=== PATIENT | female | born 1985 | race Caucasian/White ===

== ENCOUNTER 2017-06-09 19:49 | Emergency (ER) | payer SELFPAY ==
[~2017-06-09] VITALS: Ht 154.9 cm; Wt 73.1 kg
[2017-06-09 20:33] VITALS: BP 110/68
--- NOTE | 2017-06-09 20:47 | NUR ---
PT TAKEN TO BED 5
--- NOTE | 2017-06-09 20:55 | NUR ---
PATIENT PRESENTS TO ED WITH C/O COUGH AND RUNNY NOSE AND CHEST HURTIN WITH COUGH X 3 DAYS . PT DENIES N/V/D; SKIN IS PINK/WARM/DRY; AAOX4 WITH EVEN AND STEADY GAIT; LUNGS CLEAR BL; HR EVEN AND REGULAR; PT DENIES ANY FEVER OR SOB AT THIS TIME; PATIENT STATES PAIN OF 6/10 AT THIS TIME; VSS; PATIENT POSITIONED FOR COMFORT; HOB ELEVATED; BEDRAILS UP X2; BED DOWN. ER MD MADE AWARE OF PT STATUS.
[2017-06-09 21:42] VITALS: BP 125/65
== END 2017-06-09 21:39 | disposition home or self-care (01) ==
LOC: MED 19:49
DX: J20.9 Acute bronchitis, unspecified (principal)
CPT/HCPCS: 71010; 81025; 93005; 99284; Q0092; 99283

== ENCOUNTER 2018-05-27 21:08 | Emergency (ER) | payer SELFPAY ==
[~2018-05-27] VITALS: Ht 157.5 cm; Wt 70.0 kg
[2018-05-27 21:30] VITALS: BP 121/54
--- NOTE | 2018-05-27 21:30 | NUR ---
PATIENT TRIAGED; VSS; SENT TO ER LOBBY.
--- NOTE | 2018-05-27 23:15 | NUR ---
PATIENT PRESENTS TO ED WITH BILAT LOWER ABD PAIN RADIATING TO BILAT LOWER BACK X2 DAYS. PT STATES NO TRAUMA. SHE STATES N/V WITHOUT DIARRHEA; NO DIFFICULY OR CHANGES IN URINATION; SKIN IS PINK/WARM/DRY; AAOX4 WITH EVEN AND STEADY GAIT; LUNGS CLEAR BL; HR EVEN AND REGULAR; PT DENIES ANY FEVER, CP, SOB, OR COUGH AT THIS TIME; PATIENT STATES PAIN OF 8/10 AT THIS TIME; VSS; PATIENT POSITIONED FOR COMFORT; HOB ELEVATED; BEDRAILS UP X2; BED DOWN. ER MD MADE AWARE OF PT STATUS. CONTINUE TO MONITOR.
--- NOTE | 2018-05-27 23:15 | NUR ---
PT AMBULATOED TO BED #7 WITH VSS.
--- NOTE | 2018-05-28 00:52 | NUR ---
Dr. Woodard evaluating patient
[2018-05-28 00:53] VITALS: BP 100/66
--- NOTE | 2018-05-28 01:16 | NUR ---
Patient discharged with v/s stable. Written and verbal after care instructions given and explained. Patient alert, oriented and verbalized understanding of instructions. Ambulatory with steady gait. All questions addressed prior to discharge. ID band removed. Patient advised to follow up with PMD. Rx of MACROBID 100MG given. Patient educated on indication of medication including possible reaction and side effects. Opportunity to ask questions provided and answered.
== END 2018-05-28 01:16 | disposition home or self-care (01) ==
LOC: MED 21:08
DX: N39.0 Urinary tract infection, site not specified (principal)
CPT/HCPCS: 81002; 81025; 99283

== ENCOUNTER 2018-05-29 14:59 | Emergency (ER) | payer MEDICAID ==
[~2018-05-29] VITALS: Ht 162.6 cm; Wt 68.9 kg
[2018-05-29 15:14] VITALS: BP 105/75
--- NOTE | 2018-05-29 15:30 | NUR ---
PT. CAME INTO THE ED DUE TO RLQ PAIN X 3 DAYS THAT RADIATES TO HER RIGHT LOWER BACK. PT. STATES " I CAME HERE ABOUT 2 DAYS AND THEY TOLD ME I HAVE A UTI AND I HAVE BEEN TAKING MY MEDICATIONS BUT IT HAS NOT GOTTEN ANY BETTER". PT. DENIES FEVER OR VOMITING. PT. DOES HAVE NAUSEA. 8/10 SHARP PAIN IN LEFT LOWER QUADRANT TO LEFT LOWER BACK PAIN. RR EVEN AND UNLABORED. ABD ROUND AND SOFT AND TENDER UPON PALPATION TO TO RLQ. PT. DENIES PAIN UPON URINATION OR FREQUENCY. AT BEDSIDE. ER MD NOTIFIED. WILL CONTINUE TO MONITOR. SAFETY PRECAUTIONS IMPLEMENTED.
--- NOTE | 2018-05-29 15:34 | NUR ---
REPORT RECEIVED FROM NOEMI MARTINES AT THIS TIME. PT RESTING ON [facility] W/ VSS AND SAFETY PRECAUTIONS IN PLACE. WILL CONTINUE TO MONITOR.
[2018-05-29] MEDS ORDERED: NACL 0.9% 1,000 ML IV SCH (15:58)
[2018-05-29] MEDS ORDERED: KETOROLAC 30 MG/ML VIAL IVP ONE (16:00)
--- NOTE | 2018-05-29 16:41 | NUR ---
PT RELAXING ON [facility] AT THIS TIME TALKING WITH FAMILY THAT IS AT THE BEDSIDE. SAFETY PRECAUTIONS IN PLACE, VSS. WILL CONTINUE TO MONITOR.
[2018-05-29 16:47] LABS: ALBUMIN 3.9 g/dL (3.4-5.0); ANION GAP 9.3 (8-16); CREATININE 0.4 mg/dL (0.6-1.3); POTASSIUM 4.3 mmol/L (3.5-5.1); TOTAL BILIRUBIN 0.5 mg/dL (0.0-1.0)
[2018-05-29 17:17] LABS: BASOPHILS % (AUTO) 0.4 % (0.0-2.0); EOSINOPHILS # (AUTO) 0.3 K/uL (0-0.4); EOSINOPHILS % (AUTO) 3.1 % (0.0-4.0); HEMATOCRIT 41.4 % (36-48); HEMOGLOBIN 13.4 g/dL (12.0-16.0); LYMPHOCYTES # (AUTO) 2.1 K/uL (2.5-16.5); LYMPHOCYTES % (AUTO) 23.8 % (20.5-51.1); MEAN CORPUSCULAR HEMOGLOBIN 31 pg (27-31); MEAN CORPUSCULAR HGB CONC 33 g/dL (33-37); MEAN CORPUSCULAR VOLUME 94.3 fL (80-94); MONOCYTES # (AUTO) 0.6 K/uL (0.8-1.0); NEUTROPHILS # (AUTO) 5.9 K/uL (1.8-7.7); NEUTROPHILS % (AUTO) 65.7 % (42.2-75.2); PLATELET COUNT (AUTO) 217 K/uL (140-450); RED BLOOD CELL COUNT(AUTO) 4.38 MIL/uL (4.20-5.40); RED CELL DISTRIBUTION WIDTH 13.9 % (11.6-13.7)
[2018-05-29 17:39] LABS: APPEARANCE,URINE HAZY (CLEAR); BILIRUBIN,URINE NEGATIVE (NEGATIVE); BLOOD, URINE TRACE-I (NEGATIVE); COLOR,URINE YELLOW (YELLOW); LEUKOCYTE ESTERASE ,URINE TRACE (NEGATIVE); NITRITE, URINE NEGATIVE (NEGATIVE); UGLUCOSE NEGATIVE (NEGATIVE)
--- NOTE | 2018-05-29 17:45 | NUR ---
PT ASLEEP ON [facility] AT THIS TIME W/ VSS. SAFETY PRECAUTIONS IN PLACE. WILL CONTINUE TO MONITOR. FAMILY REMAINS AT THE BEDSIDE.
[2018-05-29 17:51] LABS: RBC,URINE 0-5 (RARE) /HPF (0-5); WBC,URINE 0-5 (RARE) /HPF (0-5)
[2018-05-29 18:38] VITALS: BP 111/71
--- NOTE | 2018-05-29 18:38 | NUR ---
Patient discharged with v/s stable. Written and verbal after care instructions given and explained. Patient alert, oriented and verbalized understanding of instructions. Ambulatory with steady gait. All questions addressed prior to discharge. ID band removed. Patient advised to follow up with PMD. Rx of colace and motrin given. Patient educated on indication of medication including possible reaction and side effects. Opportunity to ask questions provided and answered.
== END 2018-05-29 18:38 | disposition home or self-care (01) ==
LOC: MED 14:59
DX: R10.2 Pelvic and perineal pain (principal)
CPT/HCPCS: 36415; 74176; 76856; 80053; 81001; 81025; 82150; 83690; 84703; 85025; 96374; 99285; J1885; Q0092

== ENCOUNTER 2018-08-27 17:31 | Emergency (ER) | payer MEDICAID ==
[~2018-08-27] VITALS: Ht 157.5 cm; Wt 76.7 kg
[2018-08-27 17:41] VITALS: BP 121/75
--- NOTE | 2018-08-27 19:50 | NUR ---
Reassessed. No new complaints or changes.
--- NOTE | 2018-08-27 20:10 | NUR ---
Patient ambulated to bed 1. RN evaluating patient at bedside.
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
--- NOTE | 2018-08-27 22:18 | NUR ---
PT RESTING WITH VISITOR AT BEDSIDE. NAD. VSS. WILL CONTINUE TO MONITOR.
[2018-08-27] MEDS ORDERED: predniSONE 20 MG TAB PO ONE (22:25)
[2018-08-27] MEDS ORDERED: diphenhydrAMINE 50 MG/ML VIAL IM ONE (22:25)
[2018-08-27 23:17] VITALS: BP 108/74
--- NOTE | 2018-08-27 23:18 | NUR ---
Patient discharged with v/s stable. Written and verbal after care instructions given and explained. Patient alert, oriented and verbalized understanding of instructions. Ambulatory with steady gait. All questions addressed prior to discharge. ID band removed. Patient advised to follow up with PMD. Rx of PREDNISONE, DPHENHYDRAMINE, PEPCID given. Patient educated on indication of medication including possible reaction and side effects. Opportunity to ask questions provided and answered.
== END 2018-08-27 23:18 | disposition home or self-care (01) ==
LOC: MED 17:31
DX: L50.0 Allergic urticaria (principal)
CPT/HCPCS: 96372; 99283; J1200; J7512

== ENCOUNTER 2018-10-07 01:02 | Emergency (ER) | payer MEDICAID ==
[~2018-10-07] VITALS: Ht 162.6 cm; Wt 74.8 kg
[2018-10-07 01:17] VITALS: BP 97/58
--- NOTE | 2018-10-07 01:20 | NUR ---
EKG PERFORMED BY EMT IN TRIAGE, NSR, ER MADE AWARE
--- NOTE | 2018-10-07 01:21 | NUR ---
PT TO ER BED 11.
--- NOTE | 2018-10-07 01:25 | NUR ---
PATIENT PRESENTS TO ED WITH CHEST PAIN X 3 DAYS. PT STATES THAT SHE HAS HAD SOME N/V X 2 WEEKS. PT DENIES ABDOMINAL PAIN; SKIN IS PINK/WARM/DRY; AAOX4 WITH EVEN AND STEADY GAIT; LUNGS CLEAR BL; HR EVEN AND REGULAR; PT DENIES ANY FEVER,SOB, OR COUGH AT THIS TIME; PATIENT STATES PAIN OF 9/10 AT THIS TIME; VSS; PATIENT POSITIONED FOR COMFORT; HOB ELEVATED; BEDRAILS UP X2; BED DOWN. ER MD MADE AWARE OF PT STATUS.
[2018-10-07] MEDS ORDERED: ONDANSETRON 4 MG ODT PO ONE (01:35)
[2018-10-07] MEDS ORDERED: KETOROLAC 60 MG/2 ML VIAL IM ONE (01:35)
[2018-10-07 02:05] VITALS: BP 97/58
--- NOTE | 2018-10-07 02:05 | NUR ---
Patient discharged with v/s stable. Written and verbal after care instructions given and explained. Patient alert, oriented and verbalized understanding of instructions. Ambulatory with steady gait. All questions addressed prior to discharge. ID band removed. Patient advised to follow up with PMD. Rx of MINERAL OIL, TRAMADOL, ZOFRAN WAS given. Patient educated on indication of medication including possible reaction and side effects. Opportunity to ask questions provided and answered.
== END 2018-10-07 02:05 | disposition home or self-care (01) ==
LOC: MED 01:02
DX: R07.89 Other chest pain (principal); R11.10 Vomiting, unspecified
CPT/HCPCS: 71045; 93005; 96372; 99283; J1885; Q0092; Q0162

== ENCOUNTER 2018-10-24 14:25 | Emergency (ER) | payer MEDICAID ==
[~2018-10-24] VITALS: Ht 152.4 cm; Wt 75.3 kg
[2018-10-24 14:35] VITALS: BP 104/57
[2018-10-24] MEDS ORDERED: KETOROLAC 60 MG/2 ML VIAL IM ONE (15:15)
[2018-10-24] MEDS ORDERED: MORPHINE SULFATE 4 MG/ML SYR IM ONE (15:15)
[2018-10-24 15:33] LABS: BILIRUBIN,URINE 1+ (NEGATIVE); BLOOD, URINE 1+ (NEGATIVE); COLOR,URINE YELLOW (YELLOW); LEUKOCYTE ESTERASE ,URINE TRACE (NEGATIVE); NITRITE, URINE POSITIVE (NEGATIVE); UGLUCOSE NEGATIVE (NEGATIVE)
[2018-10-24 15:36] LABS: APPEARANCE,URINE HAZY (CLEAR)
[2018-10-24] MEDS ORDERED: LEVOFLOXACIN 500 MG TAB PO ONE (15:40)
[2018-10-24 15:41] LABS: BARBITURATE, URINE NEG. ng/ml (NEG <=200); BENZODIAZEPINE, URINE NEG. ng/mL (NEG <=200); CANNABINOID, URINE NEG. ng/mL (NEG <=50); COCAINE, URINE NEG. ng/mL (NEG <=300); OPIATE, URINE NEG. ng/mL (NEG <=2000); PHENCYCLIDINE SCREEN,URINE NEG. ng/mL (NEG <=25)
[2018-10-24 15:43] LABS: RBC,URINE 3-10 (FEW) /HPF (0-5); WBC,URINE 20-60 /HPF (0-5)
[2018-10-24 15:59] VITALS: BP 101/65
== END 2018-10-24 15:58 | disposition home or self-care (01) ==
LOC: MED 14:25
DX: N39.0 Urinary tract infection, site not specified (principal); M62.830 Muscle spasm of back
CPT/HCPCS: 80305; 81001; 81025; 87086; 96372; 99283; J1885; J2270; 87186

== ENCOUNTER 2019-01-17 02:10 | Emergency (ER) | payer MEDICAID ==
[~2019-01-17] VITALS: Ht 154.9 cm; Wt 77.6 kg
[2019-01-17 02:36] VITALS: BP 115/68
--- NOTE | 2019-01-17 02:36 | NUR ---
TO BED #09 AMBULATORY
--- NOTE | 2019-01-17 02:50 | NUR ---
PATIENT CAME IN WITH C/O LOWER ABDOMINAL PAIN THAT RADIATES TO THE BACK. PAIN WAS 9/10. ABDOMEN WAS SOFT AND FLAT, BOWEL SOUNDS ACTIVE IN ALL FOUR QUADRANTS, PAIN IN RLQ, LLQ UPON PALPATION. PATIENT HAS URGENCY AND FREQUENCY OF URINATION. GOT A UA. HOB ELEVATED,WAS GIVEN A BLANKET, BED LOWERED AND 1 SIDE RAIL UP. WAITING FOR ER MD TO EVALUATE, WILL CONTINUE TO MONITOR.
[2019-01-17] MEDS ORDERED: KETOROLAC 60 MG/2 ML VIAL IM ONE (03:00)
[2019-01-17] MEDS ORDERED: cefTRIAXone 1,000 MG in LIDOCAINE MPF 1% - 5 mL VIAL 2.1 ML IM ONE (03:00)
--- NOTE | 2019-01-17 03:30 | NUR ---
PATIENT DISCHARGED BY DR BRYANT. PT WAS GIVEN RX FOR PYRIDIUM AND MACROBID, PATIENT WAS EDUCATED AND ALL QUESTIONS ANSWERED. PAIN WAS 0/10, VSS, PATIENT WAS STABLE. WAS TOLD TO FOLLOW UP WITH PRIMARY DRTheron
[2019-01-17 04:08] VITALS: BP 115/68
== END 2019-01-17 03:30 | disposition home or self-care (01) ==
LOC: MED 02:10
DX: N39.0 Urinary tract infection, site not specified (principal)
CPT/HCPCS: 81002; 81025; 96372; 99283; J0696; J1885; J2001

== ENCOUNTER 2019-02-19 00:24 | Emergency (ER) | payer MEDICAID ==
[~2019-02-19] VITALS: Ht 152.4 cm; Wt 76.4 kg
[2019-02-19 00:33] VITALS: BP 115/70
--- NOTE | 2019-02-19 00:33 | NUR ---
TO BED # 04 AMBULATORY
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
[2019-02-19] MEDS ORDERED: methylPREDNISolone SS 125 MG/2 ML VIAL IM ONE (01:50)
[2019-02-19] MEDS ORDERED: diphenhydrAMINE 50 MG/ML VIAL IM ONE (01:50)
[2019-02-19 02:24] VITALS: BP 110/69
--- NOTE | 2019-02-19 02:25 | NUR ---
Patient discharged with v/s stable. Written and verbal after care instructions given and explained. Patient alert, oriented and verbalized understanding of instructions. Ambulatory with steady gait. All questions addressed prior to discharge. ID band removed. Patient advised to follow up with PMD. Rx of BENADRYL, PREDNISONE given. Patient educated on indication of medication including possible reaction and side effects. Opportunity to ask questions provided and answered.
== END 2019-02-19 02:25 | disposition home or self-care (01) ==
LOC: MED 00:24
DX: L25.9 Unspecified contact dermatitis, unspecified cause (principal)
CPT/HCPCS: 96372; 99283; J1200; J2930

== ENCOUNTER 2019-02-20 04:48 | Emergency (ER) | payer MEDICAID ==
[~2019-02-20] VITALS: Ht 152.4 cm; Wt 76.2 kg
[2019-02-20 04:50] VITALS: BP 134/70
--- NOTE | 2019-02-20 04:58 | NUR ---
PT AMBULATED TO ER BED 03
--- NOTE | 2019-02-20 05:18 | NUR ---
PT TO ED WITH C/O RASH TO BUE AND BLE. PT SEEN 02/19/19 AND GIVEN RC FOR BENEDRYL AND PREDNISONE; AND TAKING WITH NO RELIEF IF S/S. RED, RAISED RASH NOTED TO BLE AND BUE. NO OBVIOUS DISTRESS NOTED, PT SPEAKING IN CLEAR SENTENCES.
[2019-02-20] MEDS ORDERED: methylPREDNISolone SS 125 MG/2 ML VIAL IM ONE (05:40)
[2019-02-20] MEDS ORDERED: diphenhydrAMINE 50 MG/ML VIAL IM ONE (05:40)
[2019-02-20 06:09] VITALS: BP 134/70
== END 2019-02-20 06:09 | disposition home or self-care (01) ==
LOC: MED 04:48
DX: L50.9 Urticaria, unspecified (principal)
CPT/HCPCS: 96372; 99283; J1200; J2930

== ENCOUNTER 2019-06-21 00:03 | Emergency (ER) | payer MEDICAID ==
[~2019-06-21] VITALS: Ht 154.9 cm; Wt 76.2 kg
[2019-06-21 00:06] VITALS: BP 110/75
--- NOTE | 2019-06-21 00:16 | NUR ---
PT AMBULATED TO BED 4.
--- NOTE | 2019-06-21 00:23 | NUR ---
33/F PRESENTS TO ED WITH FAMILY/FRIEND, C/O DIFFUSE RASH THROUGHOUT BODY, INCLUDING BUE, BLE, CHEST AND BACK, SINCE YESTERDAY. NO ANGIOEDEMA NOTED. PT REPORTS ITCHING, DENIES PAIN. DENIES ANY NEW FOOD/DETERGENT/SOAP/CLOTHES. PT AWAKE AND ALERT, SKIN NORMAL WARM AND DRY, RR EVEN AND UNLABORED. DENIES MED HX OR RX.
[2019-06-21] MEDS ORDERED: predniSONE 20 MG TAB PO ONE (00:30)
[2019-06-21 00:52] VITALS: BP 104/74
--- NOTE | 2019-06-21 00:53 | NUR ---
Patient discharged with v/s stable. Written and verbal after care instructions given and explained. Patient alert, oriented and verbalized understanding of instructions. Ambulatory with steady gait. All questions addressed prior to discharge. ID band removed. Patient advised to follow up with PMD. Rx of PREDNISONE, BENADRYL given. Patient educated on indication of medication including possible reaction and side effects. Opportunity to ask questions provided and answered.
== END 2019-06-21 00:53 | disposition home or self-care (01) ==
LOC: MED 00:03
DX: T78.1XXA Other adverse food reactions, not elsewhere classified, initial encounter (principal); X58.XXXA Exposure to other specified factors, initial encounter
CPT/HCPCS: 99283; J7512; Q0163

== ENCOUNTER 2019-11-09 22:05 | Emergency (ER) | payer MEDICAID ==
[~2019-11-09] VITALS: Ht 157.5 cm; Wt 77.3 kg
[2019-11-09 22:05] VITALS: BP 113/69
--- NOTE | 2019-11-09 22:08 | NUR ---
TO LOBBY A/W BED AMBULATORY
--- NOTE | 2019-11-10 00:01 | NUR ---
PT AMBULATED TO BED 03.
--- NOTE | 2019-11-10 00:33 | NUR ---
C/O RUEDA, ANIXETY, SHAKY X TODAY IN AM. DENIES ANY HEAD TRUAMA OR INJURY. NO N,V,D,OR FEVER. VSS. RATES PAIN 9/10 AND DESCRIBES IT THORBBING AND IS LOCATED ON OCCIPITAL REGION. 3MM PERRLA BRISK. NKA. NO PMH.
[2019-11-10 00:55] VITALS: BP 113/69
--- NOTE | 2019-11-10 00:55 | NUR ---
Patient discharged with v/s stable. Written and verbal after care instructions given and explained. Patient verbalized understanding. Ambulatory with steady gait. All questions addressed prior to discharge. Advised to follow up with PMD. DR. BRYANT D/C PT
== END 2019-11-10 00:55 | disposition home or self-care (01) ==
LOC: MED 22:05
DX: M54.2 Cervicalgia (principal); F41.9 Anxiety disorder, unspecified
CPT/HCPCS: 81025; 99281; 99282

== ENCOUNTER 2020-02-03 19:19 | Emergency (ER) | payer MEDICAID ==
[~2020-02-03] VITALS: Ht 152.4 cm; Wt 79.8 kg
[2020-02-03 19:25] VITALS: BP 121/61
[2020-02-03 19:38] VITALS: BP 115/65
[2020-02-03] MEDS: FAMOTIDINE 20 MG TAB PO ONE (20:05)
[2020-02-03] MEDS: predniSONE 20 MG TAB PO ONE (20:18)
[2020-02-03] MEDS: diphenhydrAMINE 50 MG CAP PO ONE (20:18)
--- NOTE | 2020-02-03 20:30 | NUR ---
PATIENT PRESENTS TO ED WITH RED REASH AND ITCHING TO CHEST AND FOREARMS . DENIES N/V/D; SKIN IS PINK/WARM/DRY; AAOX4 WITH EVEN AND STEADY GAIT; LUNGS CLEAR BL; HR EVEN AND REGULAR; PT DENIES ANY FEVER, CP, SOB, OR COUGH AT THIS TIME; PATIENT STATES PAIN OF 0/10 AT THIS TIME; VSS; PATIENT POSITIONED FOR COMFORT; HOB ELEVATED; BEDRAILS UP X2; BED DOWN. ER MD MADE AWARE OF PT STATUS.
[2020-02-03 20:37] VITALS: BP 115/65
--- NOTE | 2020-02-03 20:37 | NUR ---
Patient discharged with v/s stable. Written and verbal after care instructions given and explained. Patient alert, oriented and verbalized understanding of instructions. Ambulatory with steady gait. All questions addressed prior to discharge. ID band removed. Patient advised to follow up with PMD. Rx of Benadryl, Loratadine, and Prednisone given. Patient educated on indication of medication including possible reaction and side effects. Opportunity to ask questions provided and answered.
== END 2020-02-03 20:37 | disposition home or self-care (01) ==
LOC: MED 19:19
DX: R21 Rash and other nonspecific skin eruption (principal)
CPT/HCPCS: 99284; J7512; Q0163

== ENCOUNTER 2020-04-14 23:40 | Emergency (ER) | payer MEDICAID ==
[~2020-04-14] VITALS: Ht 154.9 cm; Wt 79.4 kg
[2020-04-14 23:53] VITALS: BP 113/70
--- NOTE | 2020-04-15 01:40 | NUR ---
PT AMBULATED TO BED 02 WITH STEADY GAIT.
--- NOTE | 2020-04-15 02:54 | NUR ---
PELVIC TRAY SET-UP AT BEDSIDE
--- NOTE | 2020-04-15 03:08 | NUR ---
Patient transferred to bed 4 for further care. RN re-evaluating the patient at bedside.
--- NOTE | 2020-04-15 03:19 | NUR ---
Dr. Talley and female toggle press folder and feeder, nurse Dejesus, are at the bedside for a pelvic exam.
[2020-04-15] MEDS ORDERED: FLUCONAZOLE 100 MG TAB PO ONE (03:25)
[2020-04-15] MEDS ORDERED: metroNIDAZOLE 250 MG TAB PO ONE (03:25)
--- NOTE | 2020-04-15 04:16 | NUR ---
PT C/O VAGINAL IRRITATION AND DISCOMFORT X 1 WEEK. PT STATES VAGINAL AREA IS RED AND HAS HAD SOME STREAKS OF BLOOD WHEN SHE WIPES HERSELF. DOES HAVE SOME INCREASE IN VAGINAL DISCHARGE. NO FEVER, NO N/V/D. NKA
--- NOTE | 2020-04-15 04:17 | NUR ---
Patient discharged with v/s stable. Written and verbal after care instructions given and explained. Patient alert, oriented and verbalized understanding of instructions. Ambulatory with steady gait. All questions addressed prior to discharge. ID band removed. Patient advised to follow up with PMD. Rx of FLAGYL given. Patient educated on indication of medication including possible reaction and side effects. Opportunity to ask questions provided and answered.
[2020-04-15 04:18] VITALS: BP 113/70
== END 2020-04-15 04:17 | disposition home or self-care (01) ==
LOC: MED 23:40
DX: N76.0 Acute vaginitis (principal)
CPT/HCPCS: 99283; 99284

== ENCOUNTER 2020-10-01 23:18 | Emergency (ER) | payer MEDICAID ==
[~2020-10-01] VITALS: Ht 157.5 cm; Wt 72.6 kg
[2020-10-01 23:25] VITALS: BP 140/82
--- NOTE | 2020-10-01 23:25 | NUR ---
TO TENT # 01 AMBULATORY
== END 2020-10-02 02:27 | disposition home or self-care (01) ==
LOC: MED 23:18
DX: J34.89 Other specified disorders of nose and nasal sinuses (principal)
CPT/HCPCS: 99281

== ENCOUNTER 2021-01-12 01:45 | Emergency (ER) | payer MEDICAID ==
[~2021-01-12] VITALS: Ht 157.5 cm; Wt 77.1 kg
[2021-01-12 01:50] VITALS: BP 103/60
--- NOTE | 2021-01-12 01:52 | NUR ---
TO LOBBY A/W BED AMBULATORY
--- NOTE | 2021-01-12 02:18 | NUR ---
PT AMBULATED TO BED 12
--- NOTE | 2021-01-12 02:23 | NUR ---
PATIENT BIB SELF FOR C/O GENERALIZED RASH X 1 DAY. PER PATIENT RASH BEGAN X 1 DAY AGO . PATIENT DENIES NEW LOTIONS, SHAMPOOS, OR DETERGENTS USED. PATIENT ALSO DENIES EATTING ANY NEW FOODS. PATIENT NOTED WITH RED RAISED RASH, WARM TO TOUCH. PATIENT DENIES PAIN, "IT JUST ITCHES A LOT. " RESPIRATIONS ARE EVEN AND UNLABORED. NO WHEEZING NOTED. PATIENT DENIES DIFFICULTY BREATHING. VSS. MEDHX: DENIES ALLERGIES: RAMÓN
--- NOTE | 2021-01-12 02:31 | NUR ---
MAGDALENO REGALADO EVALUATING PATIENT AT BEDSIDE.
[2021-01-12] MEDS ORDERED: predniSONE 20 MG TAB PO ONE (02:50)
[2021-01-12] MEDS ORDERED: PRED20TA5 PO (03:03)
[2021-01-12] MEDS ORDERED: BEN50 PO (03:03)
[2021-01-12 03:15] VITALS: BP 108/78
== END 2021-01-12 03:15 | disposition home or self-care (01) ==
LOC: MED 01:45
DX: T78.40XA Allergy, unspecified, initial encounter (principal); R21 Rash and other nonspecific skin eruption; Z79.899 Other long term (current) drug therapy; Y92.89 Other specified places as the place of occurrence of the external cause
CPT/HCPCS: 99283; J7512; Q0163

== ENCOUNTER 2021-05-15 00:40 | Emergency (ER) | payer MEDICAID ==
[~2021-05-15] VITALS: Ht 157.5 cm; Wt 80.7 kg
[~2021-05-15 00:40] MED LIST: BEN50 PO; PRED20TA5 PO
[2021-05-15 00:50] VITALS: BP 119/69
--- NOTE | 2021-05-15 00:53 | NUR ---
ALEJANDRA A/W BED AMBULATORY
[2021-05-15 02:08] LABS: BASOPHILS # (AUTO) 0.1 K/uL (0.00-0.22); BASOPHILS % (AUTO) 0.7 % (0.0-2.0); EOSINOPHILS # (AUTO) 0.3 K/uL (0-0.4); EOSINOPHILS % (AUTO) 2.4 % (0.0-4.0); HEMATOCRIT 40.8 % (36-48); HEMOGLOBIN 13.8 g/dL (12.0-16.0); LYMPHOCYTES % (AUTO) 28.4 % (20.5-51.1); MEAN CORPUSCULAR HEMOGLOBIN 32 pg (27-31); MEAN CORPUSCULAR HGB CONC 34 g/dL (33-37); MEAN CORPUSCULAR VOLUME 93.2 fL (80-94); MONOCYTES # (AUTO) 0.8 K/uL (0.8-1.0); NEUTROPHILS # (AUTO) 6.4 K/uL (1.8-7.7); NEUTROPHILS % (AUTO) 60.5 % (42.2-75.2); PLATELET COUNT (AUTO) 246 K/uL (140-450); RED BLOOD CELL COUNT(AUTO) 4.38 MIL/uL (4.20-5.40); RED CELL DISTRIBUTION WIDTH 13.7 % (11.6-13.7); WHITE BLOOD COUNT (AUTO) 10.6 K/uL (4.8-10.8)
[2021-05-15 02:16] LABS: APPEARANCE,URINE CLEAR (CLEAR); BILIRUBIN,URINE NEGATIVE (NEGATIVE); BLOOD, URINE 3+ (NEGATIVE); COLOR,URINE YELLOW (YELLOW); LEUKOCYTE ESTERASE ,URINE NEGATIVE (NEGATIVE); NITRITE, URINE NEGATIVE (NEGATIVE); PH,URINE 6.5 (5.0-9.0); UGLUCOSE NEGATIVE (NEGATIVE)
[2021-05-15 02:31] LABS: ALBUMIN 3.7 g/dL (3.4-5.0); ANION GAP 12.8 (8-16); CARBON DIOXIDE 27.6 mmol/L (21-32); CREATININE 0.9 mg/dL (0.6-1.3); POTASSIUM 4.4 mmol/L (3.5-5.1); TOTAL BILIRUBIN 0.5 mg/dL (0.0-1.0)
[2021-05-15 02:53] LABS: RBC,URINE TOO NUMEROUS TO COUN /HPF (0-5); WBC,URINE 0-5 /HPF (0-5)
--- NOTE | 2021-05-15 03:00 | NUR ---
SEEN AND EXAMINED BY MAGDALENO WITH ORDERS AND CARRIED OUT
[2021-05-15] MEDS ORDERED: CEPH-588 PO (03:43)
[2021-05-15] MEDS ORDERED: cefTRIAXone 1,000 MG in LIDOCAINE MPF 1% 2.1 ML IM ONE (03:45)
[2021-05-15] MEDS ORDERED: LIDOCAINE MPF 1% 5 ML ONE (04:19)
[2021-05-15] MEDS ORDERED: cefTRIAXone 1,000 MG VIAL ONE ×3 (04:20→04:22)
--- NOTE | 2021-05-15 04:20 | NUR ---
MEDICATED PER ERMDS ORDER, TOLERATED WELL.
[2021-05-15 04:50] VITALS: BP 113/74
== END 2021-05-15 04:50 | disposition home or self-care (01) ==
LOC: MED 00:40
DX: N39.0 Urinary tract infection, site not specified (principal)
CPT/HCPCS: 36415; 80053; 81001; 82150; 83690; 84703; 85025; 87086; 96372; 99283; J0696; J2001

== ENCOUNTER 2022-03-07 00:13 | Emergency (ER) | payer MEDICAID ==
[~2022-03-07] VITALS: Ht 157.5 cm; Wt 81.6 kg
[~2022-03-07 00:13] MED LIST changes: +CEPH-588 PO
[2022-03-07 00:26] VITALS: BP 112/62
[2022-03-07] MEDS ORDERED: ASPIRIN 325 MG TAB PO ONE (00:50)
--- NOTE | 2022-03-07 01:01 | NUR ---
PATIENT AMBULATED TO BED 3
[2022-03-07 01:02] LABS: BASOPHILS # (AUTO) 0.1 K/uL (0.00-0.22); BASOPHILS % (AUTO) 0.7 % (0.0-2.0); EOSINOPHILS # (AUTO) 0.2 K/uL (0-0.4); EOSINOPHILS % (AUTO) 2.6 % (0.0-4.0); HEMATOCRIT 38.3 % (36-48); HEMOGLOBIN 12.8 g/dL (12.0-16.0); LYMPHOCYTES # (AUTO) 2.7 K/uL (2.5-16.5); LYMPHOCYTES % (AUTO) 29.3 % (20.5-51.1); MEAN CORPUSCULAR HEMOGLOBIN 31 pg (27-31); MEAN CORPUSCULAR HGB CONC 33 g/dL (33-37); MEAN CORPUSCULAR VOLUME 91.6 fL (80-94); MONOCYTES # (AUTO) 0.7 K/uL (0.8-1.0); MONOCYTES % (AUTO) 7.8 % (1.7-9.3); NEUTROPHILS # (AUTO) 5.4 K/uL (1.8-7.7); NEUTROPHILS % (AUTO) 59.6 % (42.2-75.2); PLATELET COUNT (AUTO) 231 K/uL (140-450); RED BLOOD CELL COUNT(AUTO) 4.18 MIL/uL (4.20-5.40); RED CELL DISTRIBUTION WIDTH 13.6 % (11.6-13.7); WHITE BLOOD COUNT (AUTO) 9.1 K/uL (4.8-10.8)
--- NOTE | 2022-03-07 01:05 | NUR ---
LAB AT BEDSIDE
[2022-03-07 01:10] LABS: ANION GAP 8.6 (8-16); CREATININE 0.5 mg/dL (0.6-1.3); POTASSIUM 3.6 mmol/L (3.5-5.1)
--- NOTE | 2022-03-07 01:10 | NUR ---
MD HANLEY AT BEDSIDE ASSSESSING PATIENT
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
--- NOTE | 2022-03-07 01:23 | NUR ---
X-ray at bedside.
--- NOTE | 2022-03-07 01:25 | NUR ---
PATIENT AT BEDSIDE
[2022-03-07] MEDS ORDERED: ACET-10509 PO (02:36)
--- NOTE | 2022-03-07 02:40 | NUR ---
PATIENT STABLE RESTING IN BED. ALL NEEDS MET AT THIS TIME. AT BEDSIDE.
[2022-03-07 02:48] VITALS: BP 115/68
--- NOTE | 2022-03-07 02:48 | NUR ---
Patient discharged with v/s stable. Written and verbal after care instructions given and explained. Patient alert, oriented and verbalized understanding of instructions. Ambulatory with steady gait. All questions addressed prior to discharge. ID band removed. Patient advised to follow up with PMD. Rx of Tylenol given.
--- NOTE | 2022-03-07 02:48 | NUR ---
The patient's care was reviewed and supervised by Sarah Prince RN.
== END 2022-03-07 02:48 | disposition home or self-care (01) ==
LOC: MED 00:13
DX: R07.89 Other chest pain (principal)
CPT/HCPCS: 36415; 71045; 80048; 84484; 85025; 93005; 99285; Q0092

== ENCOUNTER 2022-09-15 23:35 | Emergency (ER) | payer MEDICAID ==
[~2022-09-15] VITALS: Ht 157.5 cm; Wt 83.9 kg
[~2022-09-15 23:35] MED LIST changes: +ACET-10509 PO
[2022-09-15 23:46] VITALS: BP 113/72
--- NOTE | 2022-09-16 00:06 | NUR ---
Dr. Medel examining patient.
--- NOTE | 2022-09-16 00:12 | NUR ---
COVID-19 and flu swabs collected and sent to lab.
[2022-09-16] MEDS ORDERED: tessalon PO (00:16)
[2022-09-16] MEDS ORDERED: ALBU0.0912 INH (00:17)
[2022-09-16 00:29] VITALS: BP 113/72
== END 2022-09-16 00:29 | disposition home or self-care (01) ==
LOC: MED 23:35
DX: B34.9 Viral infection, unspecified (principal); Z20.822 Contact with and (suspected) exposure to COVID-19
CPT/HCPCS: 99283

== ENCOUNTER 2023-02-01 13:41 | Emergency (ER) | payer MEDICAID ==
[~2023-02-01] VITALS: Ht 152.4 cm; Wt 86.2 kg
[~2023-02-01 13:41] MED LIST changes: +ALBU0.0912 INH; +tessalon PO
[2023-02-01 13:48] VITALS: BP 128/66
[2023-02-01] MEDS ORDERED: DEXAMETHASONE 10 MG/ML VIAL IM ONE (14:40)
[2023-02-01] MEDS ORDERED: BENC TP (14:43)
[2023-02-01] MEDS ORDERED: FAMO-90 PO (14:43)
[2023-02-01] MEDS ORDERED: BEN50 PO (14:43)
[2023-02-01 15:17] VITALS: BP 128/66
--- NOTE | 2023-02-01 15:17 | NUR ---
Patient discharged with v/s stable. Written and verbal after care instructions given and explained. Patient alert, oriented and verbalized understanding of instructions. Ambulatory with steady gait. All questions addressed prior to discharge. ID band removed. Patient advised to follow up with PMD. Rx of DIPHENHYDRAMINE (CREAM AND TAB), FAMOTIDINE (SENT) given. Patient educated on indication of medication including possible reaction and side effects. Opportunity to ask questions provided and answered. WORK NOTE GIVEN
== END 2023-02-01 15:17 | disposition home or self-care (01) ==
LOC: MED 13:41
DX: R21 Rash and other nonspecific skin eruption (principal); T78.49XA Other allergy, initial encounter; Z79.899 Other long term (current) drug therapy; X58.XXXA Exposure to other specified factors, initial encounter
CPT/HCPCS: 96372; 99283; J1100

== ENCOUNTER 2023-02-03 00:25 | Emergency (ER) | payer MEDICAID ==
[~2023-02-03] VITALS: Ht 152.4 cm; Wt 86.2 kg
[~2023-02-03 00:25] MED LIST changes: +BENC TP; +FAMO-90 PO
[2023-02-03 00:44] VITALS: BP 107/60
--- NOTE | 2023-02-03 02:50 | NUR ---
Dr. Benjamin examining patient.
[2023-02-03] MEDS ORDERED: predniSONE 20 MG TAB PO ONE (02:55)
[2023-02-03 03:29] VITALS: BP 112/60
--- NOTE | 2023-02-03 03:29 | NUR ---
Patient discharged with v/s stable. Written and verbal after care instructions given and explained. Patient verbalized understanding. Ambulatory with steady gait. All questions addressed prior to discharge. Advised to follow up with PMD.
== END 2023-02-03 03:29 | disposition home or self-care (01) ==
LOC: MED 00:25
DX: L50.9 Urticaria, unspecified (principal); Z79.899 Other long term (current) drug therapy
CPT/HCPCS: 99283; J7512; Q0163

== ENCOUNTER 2023-06-03 10:10 | Emergency (ER) | payer MEDICAID ==
[~2023-06-03] VITALS: Ht 157.5 cm; Wt 88.5 kg
[2023-06-03 10:22] VITALS: BP 109/66; PULSE 85; RESP 18; TEMP 98; O2SAT 99
[2023-06-03] MEDS ORDERED: diphenhydrAMINE 50 MG/ML VIAL IVP ONE (11:45)
[2023-06-03] MEDS ORDERED: KETOROLAC 30 MG/ML VIAL IVP ONE (11:45)
[2023-06-03] MEDS ORDERED: PROCHLORPERAZINE 10 MG/2 ML VIAL IVP ONE (11:45)
[2023-06-03] MEDS ORDERED: IBUP-2218 PO (13:10)
[2023-06-03] MEDS ORDERED: ACET-8001 PO (13:10)
[2023-06-03 14:12] VITALS: BP 110/65; PULSE 85; RESP 20; TEMP 98; O2SAT 99
== END 2023-06-03 14:12 | disposition home or self-care (01) ==
LOC: MED 10:10
DX: G43.909 Migraine, unspecified, not intractable, without status migrainosus (principal); Z79.899 Other long term (current) drug therapy
CPT/HCPCS: 96374; 96375; 99284; J0780; J1200; J1885

== ENCOUNTER 2023-10-21 18:44 | Emergency (ER) | payer SELFPAY ==
[~2023-10-21] VITALS: Ht 157.5 cm; Wt 81.6 kg
[~2023-10-21 18:44] MED LIST changes: +ACET-8001 PO; +IBUP-2218 PO; +IMI25 PO
[2023-10-21 19:33] VITALS: BP 100/58; PULSE 94; RESP 20; TEMP 97; O2SAT 98
[2023-10-21 20:18] LABS: FLU A ANTIGEN negative (NEGATIVE); FLU B ANTIGEN NEGATIVE (NEGATIVE)
[2023-10-21] MEDS ORDERED: ROB PO (21:06)
[2023-10-21] MEDS ORDERED: ACET-1182 PO (21:06)
[2023-10-21 21:40] VITALS: BP 118/78; PULSE 89; RESP 17; TEMP 208.4; O2SAT 98
== END 2023-10-21 21:40 | disposition home or self-care (01) ==
LOC: MED 18:44
DX: B34.9 Viral infection, unspecified (principal); Z20.822 Contact with and (suspected) exposure to COVID-19; J06.9 Acute upper respiratory infection, unspecified; Z79.899 Other long term (current) drug therapy
CPT/HCPCS: 71045; 81025; 99284